=== PATIENT | female | born 1945 | race Caucasian/White ===

== ENCOUNTER 2023-09-10 01:10 | Emergency (ER) | payer MEDICARE, OTHER, SELFPAY ==
[2023-09-10] VITALS (9 sets, daily range): BP systolic 104–139; BP diastolic 59–121
[2023-09-10 01:36] LABS: % Basophils 0.5 % (0-2); % Eosinophils 1.3 % (0-6); % Immature Granulocytes 0.2 % (0-0.5); % Lymphocytes 32.3 % (20.5-51.1); % Monocytes 9.8 % (1.7-9.3); % Neutrophils 55.9 % (42.2-75.2); Absolute Eosinophils 0.1 10^3/uL (0-0.7); Absolute Monocytes 0.6 10^3/uL (0.1-0.6); Absolute Neutrophils 3.5 10^3/uL (1.4-6.5); Hematocrit 38.6 % (37.0-47.0); Hemoglobin 13.7 g/dL (12.0-16.0); Mean Corp Hgb Conc. 35.5 g/dL (33.0-37.0); Mean Corpuscular Hgb 31.6 pg (27.0-31.0); Mean Corpuscular Volume 88.9 fL (81.0-99.0); Mean Platelet Volume 9.7 fL (7.4-10.4); Nucleated Red Blood Cells % 0 %; Platelet Count 184 10^3/uL (130-400); Red Blood Cell Count 4.34 10^6/uL (4.20-5.40); Red Cell Dist. Width 12.7 % (11.5-14.5); White Blood Cell Count 6.3 10^3/uL (4.8-10.8)
--- NOTE | 2023-09-10 01:38 | ED.GENMED ---
History of Present Illness
<GUILLAUME Lee - Last Filed: 09/10/23 06:53>
General
Chief Complaint: Heart Rate Problem
Source: patient and ambulance crew
Exam Limitations: none
Time Seen by Provider: 09/10/23 01:19
Nursing documentation reviewed up to this point in time: agreed with
History of Present Illness
History of Present Illness:
Pt is a 77 yo female with PMH of afib with RFA in 2017, CHF, and DM who presents today following an episode of dizziness, SOB, palpitations, and pain in the middle of her upper back. Pt states that the symptoms began around 7pm this evening then
worsened when she got up to go to the bathroom around 12:30am which is why she called 911. Denies falling or LOC. HR was in the 120s in afib so EMS gave her 20 mg cartizem which resolved her symptoms and reduced her heart rate to 100-110 bpm still
in afib. Denies chest pain currently or during the episode. Denies recent illness or fever. Pt states that she has not missed any doses of her medication, including Coumadin. She reports that since her RFA in 2017, she still occasionally gets mild
episodes of dizziness, SOB, and palpitations but this is only the 3rd time it has been bad enough to call 911. Pt lives alone and ambulates without a cane or walker. She states that eating cold food/drinks and caffeine tend to trigger these episodes
and recently she has been eating more chocolate ice cream and cold beverages. Pt reports that she currently has no symptoms.
<Darren Castillo DO - Last Filed: 09/10/23 06:42>
Travel History
Have you had any contact with someone who has COVID-19?: No
Do you have any symptoms of coronavirus? Fever > 100 degrees, chills, cough, shortness of breath, sore throat, loss of taste or smell, muscle aches, or headache?: No
<Darren Castillo DO - Last Filed: 09/10/23 06:42>
Past History
ED Past Medical History: Arrthythmia (Paroxysmal atrial fibrillation), CHF, GERD, HTN, Hypercholesterolemia, NIDDM (pre diabetes) and Other (Obesity); Negative CAD or Valvular disease
ED Past Surgical History: Appendectomy and Tonsilectomy
Social History
Tobacco: Non-smoker
Alcohol: None
Personal:
Living: with family
Employment: Retired
Family History
Family History: Other (Noncontributory)
Review of Systems
<GUILLAUME Lee - Last Filed: 09/10/23 06:53>
Review of Systems
Allergies reviewed?: Yes
Other source history: ambulance crew
All Other Systems: ROS reviewed and negative except as documented in HPI and ROS
Phy Exam
<GUILLAUME Lee - Last Filed: 09/10/23 06:53>
General Physical Exam
General Presentation: well appearing and no apparent distress
General Skin: warm and dry
General Mental: alert
General Hydration: appears well hydrated
ENT Exam
ENT Exam: pharynx normal, neck supple, normocephalic, lymphnodes and swallowing well
Eye Exam
Eye Exam: PERRL and conjunctiva normal
Cardiovascular Exam
Cardiovascular Exam: no edema, no gallop, no murmur, normal peripheral pulses and irregularly irregular
Pulmonary Exam
Pulmonary Exam: lungs clear, no respiratory distress, no rales, no crackles, no rhonchi, no wheezing and no cough
Gastrointestinal Exam
Gastrointestinal Exam: normal bowel sounds, non tender, soft and non distended
Neurological Exam
Neurological Exam: alert, oriented x3 and speech normal
Skin Exam
Skin Exam: normal color and warm/dry
Psychiatric Exam
Psychiatric Exam: normal mood/affect
Course
<GUILLAUME Lee - Last Filed: 09/10/23 06:53>
Orders/Labs/Results
Orders:
Orders
09/10/23 01:12
Electrocardiogram (*1) Urgent
Reason for Study: Chest Pain
EKG- Treatment ONCE
09/10/23 01:22
Complete Blood Count/With Diff Urgent
Comprehensive Metabolic Panel Urgent
NT-proBNP Urgent
Comment: ADD ON
Prothrombin Time Urgent
Troponin I Urgent
09/10/23 02:05
0.9% Sodium Chloride 1000 ml [Nss] 1,000 ml IV BOLUS
09/10/23 02:20
0.9% Sodium Chloride 500 ml [Nss] 500 ml IV BOLUS
09/10/23 02:23
CXR2 [CR Chest - 2 Views ] Urgent
Comment:
Reason For Exam: history of CHF, episode of SOB
09/10/23 02:32
Add On- LAB Urgent
Tests Added?: pro-BNP
09/10/23 03:00
Metoprolol [Lopressor] 2.5 mg IV NOW STA
09/10/23 04:35
Diltiazem HCl [Cardizem] 10 mg IV NOW STA
09/10/23 05:15
Diltiazem 125 mg/125 ml Nss [Cardizem] 125 mg in 125 ml IV PER PROTOCOL
Initial dose in mg/hr, then titrate:: 5
Titrate to keep:: Heart rate 80-100 bpm
Titrate by mg/hr:: 5 mg/hr
Frequency of titrations (minutes):: 15
Maximum dose in mg/hr:: 15
Abnormal Lab Results
09/10/23
01:22
MCH 31.6 H pg
(27.0-31.0)
Monocytes % 9.8 H %
(1.7-9.3)
PT 33.1 H Sec
(11.4-14.6)
BUN 20 H mg/dl
(7-17)
Glucose 234 H mg/dl
(70-99)
Total Protein 5.7 L g/dl
(6.3-8.2)
Albumin 3.4 L g/dl
(3.5-5.0)
09/10/23 01:22
09/10/23 01:22
Vital Signs
Initial and Last Documented VS:
Initial Vital Signs
Temp Pulse Resp BP Pulse Ox
98.1 F 106 22 118/78 96
09/10/23 01:13 09/10/23 01:13 09/10/23 01:13 09/10/23 01:13 09/10/23 01:13
Last Documented Vital Signs
Temp Pulse Resp BP Pulse Ox
98.1 F 89 17 112/68 95
09/10/23 01:13 09/10/23 06:30 09/10/23 06:30 09/10/23 06:34 09/10/23 06:34
<Darren Castillo, DO - Last Filed: 09/10/23 06:42>
Orders/Labs/Results
Orders:
Orders
09/10/23 01:12
Electrocardiogram (*1) Urgent
Reason for Study: Chest Pain
EKG- Treatment ONCE
09/10/23 01:22
Complete Blood Count/With Diff Urgent
Comprehensive Metabolic Panel Urgent
NT-proBNP Urgent
Comment: ADD ON
Prothrombin Time Urgent
Troponin I Urgent
09/10/23 02:05
0.9% Sodium Chloride 1000 ml [Nss] 1,000 ml IV BOLUS
09/10/23 02:20
0.9% Sodium Chloride 500 ml [Nss] 500 ml IV BOLUS
09/10/23 02:23
CXR2 [CR Chest - 2 Views ] Urgent
Comment:
Reason For Exam: history of CHF, episode of SOB
09/10/23 02:32
Add On- LAB Urgent
Tests Added?: pro-BNP
09/10/23 03:00
Metoprolol [Lopressor] 2.5 mg IV NOW STA
09/10/23 04:35
Diltiazem HCl [Cardizem] 10 mg IV NOW STA
09/10/23 05:15
Diltiazem 125 mg/125 ml Nss [Cardizem] 125 mg in 125 ml IV PER PROTOCOL
Initial dose in mg/hr, then titrate:: 5
Titrate to keep:: Heart rate 80-100 bpm
Titrate by mg/hr:: 5 mg/hr
Frequency of titrations (minutes):: 15
Maximum dose in mg/hr:: 15
Abnormal Lab Results
09/10/23
01:22
MCH 31.6 H pg
(27.0-31.0)
Monocytes % 9.8 H %
(1.7-9.3)
PT 33.1 H Sec
(11.4-14.6)
BUN 20 H mg/dl
(7-17)
Glucose 234 H mg/dl
(70-99)
Total Protein 5.7 L g/dl
(6.3-8.2)
Albumin 3.4 L g/dl
(3.5-5.0)
09/10/23 01:22
09/10/23 01:22
Vital Signs
Initial and Last Documented VS:
Initial Vital Signs
Temp Pulse Resp BP Pulse Ox
98.1 F 106 22 118/78 96
09/10/23 01:13 09/10/23 01:13 09/10/23 01:13 09/10/23 01:13 09/10/23 01:13
Last Documented Vital Signs
Temp Pulse Resp BP Pulse Ox
98.1 F 89 17 112/68 95
09/10/23 01:13 09/10/23 06:30 09/10/23 06:30 09/10/23 06:34 09/10/23 06:34
<GUILLAUME Lee - Last Filed: 09/10/23 06:53>
MDM/Problems Addressed
Differential Diagnosis Includes:
atrial fibrillation, CVA,
MDM/Problems Addressed:
Pt is a 77 yo female with PMH of afib and 2017 RFA who presents following an episode of palpitations, dizziness, SOB, and mid upper back pain. Symptoms relieved and rate decreased by 20 mg Cartizem but still in afib.
Chronic conditions affecting care: DM and Arrhythmia
<GUILLAUME Lee - Last Filed: 09/10/23 06:53>
*Critical Care Note
Total Time (30-74mins, 75-104mins- exclusive of procedures): Not Applicable
<GUILLAUME Lee - Last Filed: 09/10/23 06:53>
Update Note
Update Note:
09/10/2023 0510 AM: Pt resting comfortably in bed. Cardiac rhythm still in atrial fibrillation following a second dose of cartizem. Pt states that her symptoms have resolved completely and feels fine to go home.
<Darren Castillo DO - Last Filed: 09/10/23 06:42>
Update Note
Update Note:
09/10/2023 0510 AM: Pt resting comfortably in bed. Cardiac rhythm still in atrial fibrillation following a second dose of cardizem. Pt states that her symptoms have resolved completely and feels fine to go home.
09/10/2023 0634 AM: Patient is rate controlled and anticoagulated. She absolutely does not want to be cardioverted at this time. I spoke with Dr. Kurtz and he agrees that she can be discharged for follow-up in Dr. Hawthorne office for medication
adjustment. Patient is in complete agreement. I did discuss return to ER instructions including increased heart rate or chest pain. She verbalized good understanding. Patient being discharged in improved condition. No cardioversion at this time.
<Darren Castillo, DO - Last Filed: 09/10/23 06:42>
ED Attending Note
Patient seen and examined by attending physician: Yes
I performed the substantive portion of visit, reviewed & personally made and approve the management plan that is documented in note by myself or SEAN.: Yes
ED Attending Note:
Pleasant 77-year-old female presents with rapid heart rate. She does have a history of atrial fibrillation and had episodes of a rapid heart rate today with dizziness and shortness of breath. She states that the symptoms began around 7 PM and
worsened throughout the day. She called 911 and upon arrival, EMS gave her Cardizem which she stated eased her symptoms. Patient denies chest pain or any shortness of breath at this time. Patient was seen in conjunction with the PA student. I
have reviewed and agree with the history and treatment plan presented. On my independent physical exam, patient is awake, alert, and oriented x3. Heart is irregularly irregular. Lungs are clear to auscultation bilaterally without wheezes rales or
rhonchi. Abdomen is soft nontender. Moves all 4 extremities.
Vital signs are stable. Patient not hypoxic
Nursing note reviewed. I agree with nursing documentation up to this point in time.
Home Meds and allergies reviewed.
NUMBER AND COMPLEXITY OF PROBLEMS ADDRESSED AT THE ENCOUNTER
� Chronic conditions affecting care: Atrial fibrillation on Coumadin
� Acute Exacerbation and/or Progression of Chronic Illness:
� Differential Diagnosis includes:
AMOUNT AND/OR COMPLEXITY OF DATA TO BE REVIEWED AND ANALYZED
I performed an independent evaluation of the following and my interpretation is:
EKG: EKG shows atrial fibrillation rate of 92 with normal intervals left axis deviation no evidence of acute ischemia present
CT:
X-rays: Unchanged from previous x-ray dated 08/17/2015
Ultrasound:
Laboratory Studies: Negative troponin
Other:
Review of other/old records:
Clinical information was obtained by an independent historian:
Prescriptions/Medications Considered but not given:
Further testing considered but not performed:
RISK OF COMPLICATIONS AND/OR MORBIDITY OR MORTALITY OF PATIENT MANAGEMENT
Social determinants of health affecting care: Good Social Support
Discussion with other providers:
Escalation of care including admission/observation vs risk of discharge considered:
CRITICAL CARE NOTE:
Total Time (exclusive of procedures):
Update:
-
Portions of this chart may have been created with voice recognition software.� Occasional wrong word or��sound alike� substitutions may have occurred due to the inherent limitations of voice recognition software.
Discharge Plan
Departure
Patient Disposition: Home (Routine Discharge)
Date of Disposition: 09/10/23
Time of Disposition: 06:40
Patient with high blood pressure during this ER visit?: No
Condition: Fair
Covid-19: Not Applicable
Discharge Problem:
Atrial fibrillation with RVR
Instructions: Atrial Fibrillation (DC)
Prescriptions:
No Action
atorvastatin 10 MG tablet
10 mg PO QPM
esomeprazole magnesium [Nexium] 20 MG capsule,delayed release(DR/EC)
20 mg PO DAILY
furosemide 20 MG tablet
20 mg PO DAILY
cholecalciferol (vitamin D3) 2,000 UNITS tablet
2,000 unit PO DAILY
aspirin 81 MG tablet,delayed release (DR/EC)
81 mg PO DAILY
metoprolol succinate 25 MG tablet extended release 24 hr
50 mg PO BID
Fish Oil 1 EACH capsule,delayed release(DR/EC)
3 cap PO DAILY
coenzyme [id number] E 1 CAP capsule
1 cap PO DAILY
warfarin [Jantoven] 3 MG tablet
5.5 mg PO DAILY
apple cider vinegar
Patient Comments:
'gummies to increase appetite'
metformin 500 MG tablet
1,000 mg PO BID
Patient Comments:
after meals
Rx Instructions:
at breakfast and dinner
Referrals:
Declan Hawthorne MD [Active] - Next open appointment
Yaritza Natarajan NP [Family Provider] -
Activity Restrictions/Additional Instructions:
It was a pleasure meeting you and taking part in your care. We hope for your continued healing and wellness.
Please read discharge instructions in their entirety. However, they are for general education and may not describe your exact diagnosis at discharge. Information on your ER visit and medical conditions were discussed with you along with appropriate
follow up information...
If indicated, please take your medications as instructed and indicated on discharge paperwork.
Please schedule a follow up appointment as directed. Call to schedule an appointment
Please return to the emergency department with ANY change in, persisting, or worsening of symptoms. If any of your symptoms do not improve, or persist, or become more severe within 6-12 hours, please return to the emergency department for further
care.
Please return to the emergency department if you develop a headache, neck pain/stiffness, fever greater than 100.4F, chest pain, shortness of breath, persistent nausea, vomiting, slurred speech, difficulty walking, numbness/tingling, weakness, signs
of infection or any other symptoms that are worrisome to you.
If you have any questions or concerns please do not hesitate to call the Hospital at or E-mail me directly at [email or web address]
Interventions
Interventions:
*Risk Screen - Suicide Last Done: 09/10/23 01:13
*General Assessment Last Done: 09/10/23 01:13
*Neglect/Abuse Screening Last Done: 09/10/23 01:13
ED- Cardiac Assessment Last Done: 09/10/23 01:51
ED- Pulmonary Assessment Last Done: 09/10/23 01:51
[2023-09-10 01:42] LABS: INR 3.18; PT 33.1 Sec (11.4-14.6)
[2023-09-10 01:53] LABS: ALT (SGPT) 26 U/L (0-35); AST (SGOT) 35 U/L (14-36); Albumin 3.4 g/dl (3.5-5.0); Alkaline Phosphatase 91 U/L (38-126); Blood Urea Nitrogen 20 mg/dl (7-17); Calcium 8.7 mg/dl (8.4-10.2); Carbon Dioxide 23 mmol/L (22-30); Chloride 105 mmol/L (98-107); Estimated Creatinine Clearance 85 ml/min; Glucose 234 mg/dl (70-99); Potassium 3.6 mmol/L (3.5-5.1); Sodium 138 mmol/L (135-145); Total Bilirubin 0.7 mg/dl (0.2-1.3); Total Protein 5.7 g/dl (6.3-8.2); eGFR > 60.00
[2023-09-10 01:56] LABS: Troponin I < 0.012 ng/ml
[2023-09-10] MEDS: NSS 500 IV (02:33)
[2023-09-10] MEDS: LOPRESSOR 2.5 MG IV (03:04)
[2023-09-10 04:08] LABS: NT-proBNP 353 pg/ml
[2023-09-10] MEDS: CARDIZEM 10 MG IV (04:43)
[2023-09-10] MEDS: CARDIZEM 125 IV (05:15)
== END 2023-09-10 08:39 | disposition home or self-care (01) ==
LOC: EMR 01:10
PROVIDERS: EMERGENCY PHYSICIAN Student in an Organized Health Care Education/Training Program; FAMILY PHYSICIAN Internal Medicine
DX: I48.91 Unspecified atrial fibrillation (principal); R42 Dizziness and giddiness; I11.0 Hypertensive heart disease with heart failure; I50.9 Heart failure, unspecified; K21.9 Gastro-esophageal reflux disease without esophagitis; E11.9 Type 2 diabetes mellitus without complications; E78.00 Pure hypercholesterolemia, unspecified; E66.9 Obesity, unspecified; Z79.01 Long term (current) use of anticoagulants; Z60.2 Problems related to living alone; Z90.49 Acquired absence of other specified parts of digestive tract
CPT/HCPCS: 99283; 96374; 96376; 96361; 71046; 80053; 83880; 84484; 85025; 85610; 93005

== ENCOUNTER → 2023-10-20 14:52 | Outpatient (REF) | payer MEDICARE, OTHER, SELFPAY | LOC: HWRCS 14:52 | PROVIDERS: ATTENDING PHYSICIAN Internal Medicine Cardiovascular Disease; FAMILY PHYSICIAN Internal Medicine | DX: I48.0 Paroxysmal atrial fibrillation (principal) | CPT/HCPCS: 93306 ==

== ENCOUNTER → 2023-11-12 10:55 | Outpatient (REF) | payer MEDICARE, OTHER, SELFPAY | LOC: HWRAD 10:55 | PROVIDERS: ATTENDING PHYSICIAN Internal Medicine | DX: R79.89 Other specified abnormal findings of blood chemistry (principal); Z78.0 Asymptomatic menopausal state | CPT/HCPCS: 76700; 77080 ==

== ENCOUNTER → 2024-02-26 12:36 | Outpatient (REF) | payer MEDICARE, OTHER, SELFPAY | LOC: HWRAD 12:36 | PROVIDERS: ATTENDING PHYSICIAN Orthopaedic Surgery Hand Surgery; FAMILY PHYSICIAN Internal Medicine | DX: M25.512 Pain in left shoulder (principal) | CPT/HCPCS: 73200 ==

== ENCOUNTER → 2024-09-15 11:14 | Outpatient (REF) | payer MEDICARE, OTHER, SELFPAY | LOC: HWWDC 11:14 | PROVIDERS: ATTENDING PHYSICIAN Internal Medicine | DX: Z12.31 Encounter for screening mammogram for malignant neoplasm of breast (principal) | CPT/HCPCS: 77063; 77067 ==